=== PATIENT | female | born 1990 | race Two or more races ===

== ENCOUNTER 2023-10-09 07:57 | Outpatient (CLI) | payer OTHER ==
[~2023-10-09 07:57] MED LIST: ALLEGRA ALLERG180 MG PO; DICLOFENAC POTA50 MG PO
[2023-10-09 14:13] LABS: ALKALINE PHOSPHATASE 43 U/L (50-136); ALT/SGPT 49 U/L (12-78); AST/SGOT 20 U/L (15-37); BILIRUBIN TOTAL 0.26 mg/dL (0.3-1.2); BILIRUBIN,CONJUGATED < 0.10 mg/dL (0.0-0.2); BILIRUBIN,UNCONJUGATED 0.16 mg/dL (0.0-0.6); T4 FREE 0.88 NG/ML (0.76-1.46); TSH 0.578 uIU/mL (0.358-3.74)
[2023-10-09 14:45] LABS: T3 TOTAL 1.1 ng/ml (0.846-2.02); VITAMIN D3 25 HYDROXY 25.94 ng/ml (30-120)
[2023-10-11 10:07] LABS: FOLLICLE STIMULATING HORMONE 4.2 mIU/mL (.); LEUTEINIZING HORMONE 16.1 mIU/mL (.)
== END 2023-10-09 10:26 | disposition home or self-care (01) ==
LOC: LAB 07:57
DX: R93.2 Abnormal findings on diagnostic imaging of liver and biliary tract (principal); E55.9 Vitamin D deficiency, unspecified; R42 Dizziness and giddiness; N91.2 Amenorrhea, unspecified

== ENCOUNTER 2023-10-22 22:38 | Emergency (ER) | payer OTHER ==
[~2023-10-22] VITALS: Ht 167.6 cm; Wt 86.2 kg
[2023-10-23] MEDS ORDERED: KETOROLAC TROMETHAMINE 60 MG VIAL IM STA (03:22)
[2023-10-23] MEDS ORDERED: MELOXICAM15 MG PO (04:42)
== END 2023-10-23 05:04 ==
LOC: ER 22:38
DX: S13.9XXA Sprain of joints and ligaments of unspecified parts of neck, initial encounter (principal); X58.XXXA Exposure to other specified factors, initial encounter; Y93.9 Activity, unspecified; Y92.9 Unspecified place or not applicable; Y99.9 Unspecified external cause status; M62.830 Muscle spasm of back; Z88.8 Allergy status to other drugs, medicaments and biological substances

== ENCOUNTER 2023-10-23 13:57 | Emergency (ER) | payer OTHER ==
[~2023-10-23] VITALS: Ht 160 cm; Wt 86.2 kg
[~2023-10-23 13:57] MED LIST changes: +MELOXICAM15 MG PO
[2023-10-23] MEDS ORDERED: DEXAMETHASONE SODIUM PHOSPHATE 4 MG/ML VIAL IV ONE (15:15)
[2023-10-23] MEDS ORDERED: KETOROLAC TROMETHAMINE 60 MG VIAL IM ONE (15:15)
== END 2023-10-23 18:39 | disposition home or self-care (01) ==
LOC: ER 13:57
DX: M79.18 Myalgia, other site (principal); Z91.013 Allergy to seafood; Z88.8 Allergy status to other drugs, medicaments and biological substances

== ENCOUNTER 2023-10-25 05:54 | Emergency (ER) | payer OTHER ==
[~2023-10-25] VITALS: Ht 157.5 cm; Wt 86.2 kg
[2023-10-25] MEDS ORDERED: ORPHENADRINE CITRATE 30 MG/ML AMPUL IM STA (07:41)
[2023-10-25] MEDS ORDERED: KETOROLAC TROMETHAMINE 60 MG VIAL IM STA (07:41)
[2023-10-25] MEDS ORDERED: DEXAMETHASONE SODIUM PHOSPHATE 4 MG/ML VIAL IM STA (07:42)
== END 2023-10-25 09:48 | disposition home or self-care (01) ==
LOC: ER 05:54
DX: M62.838 Other muscle spasm (principal); Z91.013 Allergy to seafood; Z88.6 Allergy status to analgesic agent

== ENCOUNTER 2023-10-30 12:20 | Outpatient (CLI) | payer OTHER ==
[2023-10-30 13:27] LABS: HEMATOCRIT 42.7 % (36.0-45.00); HEMOGLOBIN 14.7 g/dL (12.0-15.00); MEAN CELL VOLUME 83.3 fL (80.00-100.00); MEAN CORPUSCULAR HEMOGLOBIN 28.6 pg (27.00-32.0); MEAN CORPUSCULAR HGB CONC 34.4 g/dl (32.0-36.0); PLATELET COUNT 279 K/uL (150-450); RED BLOOD COUNT 5.12 M/uL (4.00-6.00); RED CELL DISTRIBUTION WIDTH 13.1 % (11.5-14.5)
[2023-10-30 14:10] LABS: MYCOPLASMA PNEUMONIAE IGM NON REACTIVE (NO REACTIVE)
== END 2023-10-30 12:21 | disposition home or self-care (01) ==
LOC: LAB 12:20
PROVIDERS: ATTEND General Practice
DX: J11.1 Influenza due to unidentified influenza virus with other respiratory manifestations (principal); J06.9 Acute upper respiratory infection, unspecified; R50.9 Fever, unspecified

== ENCOUNTER 2023-10-30 12:53 | Emergency (ER) | payer OTHER ==
[~2023-10-30] VITALS: Ht 157.5 cm; Wt 86.2 kg
[2023-10-30 16:27] LABS: HEMATOCRIT 42.5 % (36.0-45.00); HEMOGLOBIN 14.6 g/dL (12.0-15.00); MEAN CELL VOLUME 84.3 fL (80.00-100.00); MEAN CORPUSCULAR HGB CONC 34.4 g/dl (32.0-36.0); PLATELET COUNT 286 K/uL (150-450); RED BLOOD COUNT 5.04 M/uL (4.00-6.00); RED CELL DISTRIBUTION WIDTH 13.3 % (11.5-14.5)
[2023-10-30 16:30] LABS: PH,URINE 6.5 (5.0-8.0); URINE APPEARANCE Clear; URINE BILIRRUBIN Negative (NEGATIVE); URINE BLOOD Negative; URINE COLOR Yellow; URINE GLUCOSE Negative (NEGATIVE); URINE LEUKOCYTE Negative; URINE NITRATE Negative; URINE PROTEIN Negative (NEGATIVE); URINE UROBILINOGEN 0.2 E.U./dl
[2023-10-30 16:33] LABS: URINE BACTERIA 95.7 uL (0.0-1933); URINE EPITHELIAL CELLS 3.3 uL (0.0-38.8); URINE RBC 3.4 uL (0.0-20.8); URINE WBC 5.2 uL (0.0-23.2)
[2023-10-30 16:59] LABS: ALBUMIN 3.8 gm/dL (3.4-5.0); BILIRUBIN TOTAL 0.31 mg/dL (0.3-1.2); CALCIUM 8.8 mg/dL (8.5-10.1); CREATININE SERUM 0.91 mg/dL (0.55-1.02); GFR 72.1; GLOBULINA 3.5 G/DL (2.4-3.5); POTASSIUM 3.93 mEq/L (3.5-5.1); TOTAL PROTEIN 7.3 gm/dL (6.4-8.2)
== END 2023-10-30 19:12 | disposition home or self-care (01) ==
LOC: ER 12:54
PROVIDERS: General Practice
DX: R53.81 Other malaise (principal); Z88.8 Allergy status to other drugs, medicaments and biological substances; Z91.013 Allergy to seafood

== ENCOUNTER → 2023-10-30 | Emergency (ER) | payer OTHER | END | disposition home or self-care (01) | LOC: ER 11:24 | DX: R53.81 Other malaise (principal); R53.83 Other fatigue; Z20.822 Contact with and (suspected) exposure to COVID-19 ==

== ENCOUNTER → 2023-10-31 06:48 | Outpatient (CLI) | payer OTHER ==
[2023-10-31 07:44] LABS: PH,URINE 5.5 (5.0-8.0); URINE APPEARANCE Cloudy; URINE BILIRRUBIN Negative (NEGATIVE); URINE BLOOD Negative; URINE COLOR Yellow; URINE GLUCOSE Negative (NEGATIVE); URINE LEUKOCYTE Negative; URINE NITRATE Negative; URINE PROTEIN Negative (NEGATIVE); URINE UROBILINOGEN 0.2 E.U./dl
[2023-10-31 07:45] LABS: URINE BACTERIA 2062.5 uL (0.0-1933); URINE RBC 54.7 uL (0.0-20.8); URINE WBC 47.4 uL (0.0-23.2)
[2023-10-31 08:13] LABS: ALBUMIN 3.7 gm/dL (3.4-5.0); ALKALINE PHOSPHATASE 56 U/L (50-136); ALT/SGPT 67 U/L (12-78); ANION GAP 7 (10.0-20.0); AST/SGOT 17 U/L (15-37); BILIRUBIN TOTAL 0.35 mg/dL (0.3-1.2); BLOOD UREA NITROGEN 14 mg/dL (7-18); BUN CREA RATIO 14 (7.0-25.0); C-REACTIVE PROTEIN < 0.29 MG/DL (0.00-0.29); CALCIUM 8.5 mg/dL (8.5-10.1); CARBON DIOXIDE 29 mEq/L (21-32); CHLORIDE 108 mmol/L (98-107); CHOL HDL RATIO 3.7 (0-5.0); CHOLESTEROL 133 mg/dL (0-200); CREATININE SERUM 1.01 mg/dL (0.55-1.02); GFR 63.93; GLOBULINA 3.1 G/DL (2.4-3.5); GLUCOSE FASTING 81 mg/dL (65-100); HDL 36 mg/dl (40-60); LDL 72 mg/dl (0-130); OSMOLALITY SERUM 279 MOSM/KG (275-295); POTASSIUM 4.14 mEq/L (3.5-5.1); SODIUM 140 mmol/L (136-145); T4 TOTAL 9.24 UG/DL (4.8-13.9); TOTAL PROTEIN 6.8 gm/dL (6.4-8.2); TRIGLYCERIDES 126 mg/dL (0-150); TSH 0.934 uIU/mL (0.358-3.74); VLDL 25 (0-39)
== END | disposition home or self-care (01) ==
LOC: LAB 06:48
PROVIDERS: ATTEND General Practice
DX: I11.9 Hypertensive heart disease without heart failure (principal); M54.50 Low back pain, unspecified; M25.50 Pain in unspecified joint; N39.0 Urinary tract infection, site not specified; E03.8 Other specified hypothyroidism; E78.2 Mixed hyperlipidemia; R42 Dizziness and giddiness

== ENCOUNTER 2024-02-27 09:38 | Outpatient (CLI) | payer OTHER ==
[~2024-02-27 09:38] MED LIST changes: +DIAZEPAM5 MG PO
== END 2024-02-27 13:26 | disposition home or self-care (01) ==
LOC: LAB 09:38
DX: J11.1 Influenza due to unidentified influenza virus with other respiratory manifestations (principal); Z20.828 Contact with and (suspected) exposure to other viral communicable diseases

== ENCOUNTER 2024-09-03 08:47 | Outpatient (CLI) | payer OTHER | END 2024-09-03 08:56 | disposition home or self-care (01) | LOC: TOM 08:47 | DX: M54.50 Low back pain, unspecified (principal) ==

== ENCOUNTER 2025-03-02 14:57 | Outpatient (CLI) | payer OTHER ==
[2025-03-02 15:58] LABS: COVID-19 AG NEGATIVE (NEGATIVE)
[2025-03-02 15:59] LABS: MYCOPLASMA PNEUMONIAE IGM NON REACTIVE (NO REACTIVE)
== END 2025-03-02 15:02 | disposition home or self-care (01) ==
LOC: LAB 14:57
DX: Z00.00 Encounter for general adult medical examination without abnormal findings (principal)